=== PATIENT | female | born 1975 | race American Indian/Alaskan Native ===

== ENCOUNTER → 2017-07-28 | Outpatient (CLI) | payer BC ==
--- NOTE | 2017-07-31 10:41 | Diagnostic Imaging Report ---
Bilateral screening mammogram 2D views with tomosynthesis The current study was also evaluated with a Computer Aided Detection (CAD) system. Indication: Screening. No current complaints stated on the questionnaire. COMPARISON: None. This is baseline exam. FINDINGS: There is scattered fibroglandular densities more dense in the outer aspect of the left breast. In the upper outer aspect of the left breast focal asymmetry seen measuring 3 cm which is favored to be related to fibroglandular tissue. The left breast demonstrate no suspicious mass or calcification. IMPRESSION: Focal compression views and ultrasound evaluation for symmetry in the upper outer aspect of the left breast. BI-RADS 0. ACR BI-RADS Category 0: Incomplete. (Needs additional imaging evaluation). Result letter will be mailed to the patient. Note: At least 10% of breast cancer is not imaged by mammography. Dictated by: Dictated on workstation # [id number]
== END ==
LOC: RAD 10:15
PROVIDERS: ATTEND Internal Medicine
DX: Z12.31 Encounter for screening mammogram for malignant neoplasm of breast (principal)
CPT/HCPCS: 77067

== ENCOUNTER → 2017-08-18 | Outpatient (CLI) | payer BC ==
--- NOTE | 2017-08-18 12:01 | Diagnostic Imaging Report ---
Left breast mammogram with tomography evaluation. The current study was also evaluated with a Computer Aided Detection (CAD) system. INDICATION: Asymmetry in upper-outer aspect of left breast. COMPARISON: 09/28/2016. FINDINGS: The left breast demonstrates dense asymmetry in the outer aspect of the left breast. Compression views and tomography evaluation demonstrates no definite underlying mass. IMPRESSION: The global asymmetry in the outer aspect of the left breast is favored to be summation artifact of asymmetric parenchyma with no definite underlying mass. Ultrasound evaluation pending. ACR BI-RADS Category 0: Incomplete. (Needs additional imaging evaluation). Result letter will be mailed to the patient. Note: At least 10% of breast cancer is not imaged by mammography. Dictated by: Dictated on workstation # [id number]
--- NOTE | 2017-08-18 18:07 | Diagnostic Imaging Report ---
EXAMINATION: Left breast ultrasound. INDICATION: Asymmetry in the outer aspect of the left breast. FINDINGS: The four quadrants and retroareolar region of the left breast were scanned. A simple cyst measuring 0.6 mm is seen in the 1:30 o'clock position, 4 cm from the nipple. No other lesion is identified. IMPRESSION: No suspicious lesion is seen. The asymmetry in the outer aspect of the left breast is likely secondary to global asymmetry of the fibroglandular tissue with no definite mass. Six month followup left breast mammogram is recommended to ensure no adverse development. ACR BI-RADS Category 3: Probably benign findings. Result letter will be mailed to the patient. Note: At least 10% of breast cancer is not imaged by mammography. Dictated by: Dictated on workstation # [id number]
== END ==
LOC: RAD 07:47
PROVIDERS: ATTEND Internal Medicine
DX: N64.89 Other specified disorders of breast (principal)
CPT/HCPCS: 76641

== ENCOUNTER → 2018-02-01 | Outpatient (CLI) | payer BC ==
--- NOTE | 2018-02-01 19:10 | Diagnostic Imaging Report ---
INDICATION: Ultrasound of the left breast limited. FINDINGS: The previous left breast ultrasound exam performed on 08/18/17 suggested a 6 mm simple cyst in the 1:30 position of left breast roughly 4 cm from the nipple. That finding is not evident on this exam. There is no primary or secondary sign of malignancy noted. The diagnostic mammogram performed earlier today also failed to show any sign of malignancy. IMPRESSION: 1. There is no evidence of malignancy. 2. The patient should have her annual bilateral screening mammogram on schedule in July of 2018. ACR BI-RADS Category 1: Negative. Dictated by: Dictated on workstation # [id number]
--- NOTE | 2018-02-02 22:35 | Diagnostic Imaging Report ---
Unilateral diagnostic left mammogram. The current study was also evaluated with a Computer Aided Detection (CAD) system. FINDINGS: The baseline screening mammogram of 07/28/2017 noted an asymmetric density in the upper-outer aspect of the left breast. The subsequent diagnostic mammogram and ultrasound exam performed on 08/18/2017 identified a small 6 mm cyst in the 01:30 position of the breast. There was no evidence of malignancy. On this study, the area in question does not appear to have changed significantly. There is no primary or secondary sign of malignancy noted. The benign-appearing nodular density in the upper-outer aspect of the left breast seen previously also appears stable. IMPRESSION: 1. There is no evidence for malignancy. 2. Ultrasound has been scheduled for further evaluation. ACR BI-RADS Category 0: Incomplete. (Needs additional imaging evaluation). Result letter will be mailed to the patient. Note: At least 10% of breast cancer is not imaged by mammography. Dictated by: Dictated on workstation # [id number]
== END ==
LOC: RAD 12:24
PROVIDERS: ATTEND Internal Medicine
DX: N60.02 Solitary cyst of left breast (principal)
CPT/HCPCS: 76642

== ENCOUNTER → 2019-01-18 | Outpatient (CLI) | payer BC ==
--- NOTE | 2019-01-18 17:45 | Diagnostic Imaging Report ---
INDICATION: Routine screening. COMPARISON: Prior mammogram from 07/28/2017 and left mammogram from 02/01/2018. EXAMINATION: 2D and 3D bilateral screening mammography was performed with CAD. The current study was also evaluated with a Computer Aided Detection (CAD) system. FINDINGS: Both breasts are heterogeneously dense, limiting the sensitivity of mammography. The small circumscribed densities in the upper-outer left breast appear stable. No spiculated mass or malignant appearing microcalcifications are seen. Axillae are unremarkable. IMPRESSION: No mammographic features suspicious for malignancy are identified. ACR BI-RADS Category 2: Benign findings. Result letter will be mailed to the patient. Note: At least 10% of breast cancer is not imaged by mammography. Dictated by: Dictated on workstation # [id number]
== END ==
LOC: RAD 08:15
PROVIDERS: ATTEND Internal Medicine
DX: Z12.31 Encounter for screening mammogram for malignant neoplasm of breast (principal)
CPT/HCPCS: 77067

== ENCOUNTER → 2021-06-24 | Outpatient (CLI) | payer BC ==
--- NOTE | 2021-06-24 15:57 | Diagnostic Imaging Report ---
PROCEDURE: US Non-ob pelvis comp/trans. TECHNIQUE: Multiple realtime grayscale images were obtained of the pelvis in various projections endovaginally. Transabdominal imaging was also performed. INDICATION: Irregular periods Uterus measures 7 by 4 x 4 cm. The endometrium measures 12 mm. The right ovary measures 2.2 x 2.2 cm. The left ovary measures 1.9 x 1.3 cm. There is a 2.2 cm lesion in the fundus consistent with a fibroid. The myometrium is otherwise homogeneous in appearance. The endometrium is homogeneous. There is blood flow to the ovaries. No adnexal mass or free fluid seen. There is a subcentimeter nabothian cyst in the cervix. IMPRESSION: Small uterine lesion consistent with a fibroid. There is a nabothian cyst. Dictated by: Dictated on workstation # [id number]
--- NOTE | 2021-06-24 17:37 | Diagnostic Imaging Report ---
Digital mammogram Indication: Bilateral screening This study was compared to the prior exams of 01/18/2019, 02/01/2018 and 07/28/2017. At this time there are no current complaints. The current study was also evaluated with a Computer Aided Detection (CAD) system. FINDINGS: The fibroglandular tissue in both breasts is heterogeneously dense. This does limit the sensitivity of this exam. Overall, there does not appear to have been any significant change when compared to the prior study. No primary or secondary sign of malignancy is noted. IMPRESSION: 1. There is no radiographic evidence for malignancy. 2. The patient should have her annual bilateral screening mammogram on schedule in May of 2022. ACR BI-RADS Category 1: Negative. Result letter will be mailed to the patient. Note: At least 10% of breast cancer is not imaged by mammography. Dictated by: Dictated on workstation # [id number]
== END ==
LOC: RAD 15:00
PROVIDERS: ATTEND Internal Medicine
DX: Z12.31 Encounter for screening mammogram for malignant neoplasm of breast (principal); N88.8 Other specified noninflammatory disorders of cervix uteri
CPT/HCPCS: 76830; 76856; 77063; 77067